=== PATIENT | male | born 1955 | race Caucasian/White ===

== ENCOUNTER 2019-12-06 16:55 | Emergency (ER) | payer MEDICAID, OTHER ==
[~2019-12-06] VITALS: Ht 193 cm; Wt 59.0 kg
[~2019-12-06 16:55] MED LIST: FLEET ENEMA133 ML RECTAL; IBUPROFEN600 MG ORAL; NKM; NORCO 5-325 TA1 EACH ORAL; ONDANSETRON ODT4 MG ORAL
[2019-12-06 16:58] VITALS: BP 140/85
--- NOTE | 2019-12-06 17:12 | NUR ---
ED Nurse Note: Pt was BIBA d/t ETOH; noted with swelling LT index finger. Pt is ambulatory; AOx2, placed on bed.
[2019-12-06] MEDS ORDERED: CEPHALEXIN500 MG ORAL (17:24)
[2019-12-06] MEDS ORDERED: ZOFRAN4 M1 ORAL (17:24)
[2019-12-06] MEDS ORDERED: IBUPROFEN600 MG ORAL (17:24)
[2019-12-06] MEDS ORDERED: cefTRIAXone 1 GM in NS 55 ML IVPB ONE (17:30)
[2019-12-06] MEDS ORDERED: Ketorolac 60mg Inj IM ONE (17:30)
[2019-12-06 18:15] VITALS: BP 138/84
--- NOTE | 2019-12-06 18:15 | NUR ---
Homeless Discharge: Patient is being discharged from medical care. Awake, alert and oriented x3. After care instructions, including referral to community resources were given. Patient verbalized understanding of After care instructions; at this time patient does not request medications, equipment or placement. All medical devices such as IV and ID band were removed. Patient ambulated out with all personal belongings with steady gait.
--- NOTE | 2019-12-06 18:58 | Emergency Room Report ---
History of Present Illness General Chief Complaint: Abdominal Pain Source: Patient, EMS Present Illness HPI Patient presents with complaints of nausea vomiting epigastric abdominal discomfort patient reports increased alcohol intake Recently Denies any chest pain or shortness of breath denies any fevers denies any lower abdominal pain patient reports feeling significantly better after vomiting Denies any diarrhea patient also complains of redness to the left finger And reports that he has been trying to get that treated for over the past 2 years Denies any recent trauma denies any recent medications Allergies: Coded Allergies: No Known Allergies (Unverified , 05/26/13) Patient History Past Medical History: see triage record Reviewed Nursing Documentation: PMH: Agreed; PSxH: Agreed Nursing Documentation-PMH Past Medical History: No Stated History Hx Cancer: Yes - stomach Review of Systems All Other Systems: negative except mentioned in HPI Physical Exam Vital Signs Date Time Temp Pulse Resp B/P (MAP) Pulse Ox O2 Delivery O2 Flow Rate FiO2 12/06/19 16:48 97.9 75 18 140/85 (103) 97 Room Air Sp02 EP Interpretation: reviewed, normal General Appearance: well appearing, no apparent distress - Appears somewhat disheveled Head: normocephalic, atraumatic Eyes: bilateral eye PERRL, bilateral eye EOMI ENT: EOM grossly intact, normal pharynx Neck: supple Respiratory: lungs clear, no respiratory distress, no retraction Cardiovascular #1: regular rate, rhythm Gastrointestinal: non tender, soft Musculoskeletal: other - Moves all extremities appropriately patient does have some mild erythema distally in the left, index finger does not appear to be consistent with paronychia however early cellulitis needs to be considered Neurologic: alert, oriented x3 Psychiatric: normal inspection Skin: other - As above Lymphatic: no adenopathy Medical Decision Making Diagnostic Impression: Primary Impression: cellulitis Additional Impression: vomiting ER Course With the history exam and presentation, multiple differentials considered, including but not limited to appendicitis, gastritis, cholecystitis, diverticulitis Patient at this time resting comfortably Appears to have reaction to the alcohol intake abdomen remains soft patient is afebrile Patient was treated symptomatically antibiotics were also provided for the finger Patient requires close outpatient follow-up Last Vital Signs Date Time Temp Pulse Resp B/P (MAP) Pulse Ox O2 Delivery O2 Flow Rate FiO2 12/06/19 18:15 98.2 72 20 138/84 99 Room Air Status: improved Disposition: HOME, SELF-CARE Condition: Improved Scripts Ondansetron (Zofran) 4 Mg Tablet 4 MG ORAL Q6H PRN for Nausea & Vomiting, #12 TAB Prov: Celsa Arias DO 12/06/19 Ibuprofen* (MOTRIN*) 600 Mg Tablet 600 MG ORAL Q8H PRN for For Pain, #20 TAB 0 Refills Prov: Celsa Arias DO 12/06/19 Cephalexin* (KEFLEX*) 500 Mg Capsule 500 MG ORAL EVERY 6 HOURS for 7 Days, CAP Prov: Celsa Arias DO 12/06/19 Referrals: [facility] Psych ER - Peds ER - Patient Instructions: Nausea and Vomiting, Adult, [id number], Cellulitis, [id number] Additional Instructions: Patient is provided with the discharge instructions notified to follow up with primary doctor in the next 2-3 days otherwise return to the er with any worsening symptoms. Please note that this report is being documented using [email or web address] technology. This can lead to erroneous entry secondary to incorrect interpretation by the dictating instrument. Celsa Arias DO Dec 06, 2019 18:58
== END 2019-12-06 18:15 | disposition home or self-care (01) ==
LOC: EDBD 16:55 → EMR 17:05
DX: R11.2 Nausea with vomiting, unspecified (principal); L03.90 Cellulitis, unspecified; Z85.028 Personal history of other malignant neoplasm of stomach
CPT/HCPCS: 96365; 96372; J0696; Z7502; 99284